=== PATIENT | female | born 1970 | race Caucasian/White ===

== ENCOUNTER 2024-03-01 13:43 | Emergency (ER) | payer MEDICAID ==
[~2024-03-01] VITALS: Ht 157.5 cm; Wt 77.1 kg
[2024-03-01] MEDS ORDERED: PANTOPRAZOLE 40 MG VIAL ONE (15:02)
[2024-03-01] MEDS ORDERED: MAG HYDROX/AL HYDROX/SIMETH 30 ML UDC ONE (15:02)
[2024-03-01] MEDS ORDERED: KETOROLAC TROMETHAMINE 15 MG/ML VIAL ONE (15:02)
[2024-03-01] MEDS ORDERED: LORAZEPAM INJ 2 MG/ML VIAL ONE (15:03)
[2024-03-01] MEDS: KETOROLAC TROMETHAMINE 15 MG/ML VIAL IV ONE (15:13)
[2024-03-01] MEDS: PANTOPRAZOLE 40 MG VIAL IV ONE (15:13)
[2024-03-01] MEDS: LORAZEPAM INJ 2 MG/ML VIAL IV ONE (15:13)
[2024-03-01] MEDS: MAG HYDROX/AL HYDROX/SIMETH 30 ML UDC PO ONE (15:13)
[2024-03-01 15:44] LABS: BASOPHILS # (AUTO) 0.1 K/uL (0.0-0.2); BASOPHILS % (AUTO) 1.3 % (0.0-2.0); EOSINOPHILS # (AUTO) 0.1 K/uL (0.0-0.7); EOSINOPHILS % (AUTO) 0.8 % (0.0-6.0); HEMATOCRIT 42 % (33-45); HEMOGLOBIN 14.2 g/dL (11.5-14.8); LYMPHOCYTES # (AUTO) 2.9 K/uL (0.8-4.8); LYMPHOCYTES % (AUTO) 27.1 % (20.0-44.0); MEAN CORPUSCULAR HEMOGLOBIN 30 PG (26.0-33.0); MEAN CORPUSCULAR HGB CONC 34 g/dl (31.0-36.0); MEAN CORPUSCULAR VOLUME 88 fL (82-100); MONOCYTES # (AUTO) 0.6 K/uL (0.1-1.30); MONOCYTES % (AUTO) 6.1 % (2.0-12.0); NEUTROPHILS # (AUTO) 6.8 K/uL (1.8-8.9); NEUTROPHILS % (AUTO) 64.7 % (43.0-81.0); PLATELET COUNT (AUTO) 339 K/uL (150-450); RED BLOOD CELL COUNT(AUTO) 4.81 MIL/uL (4.0-5.2); RED CELL DISTRIBUTION WIDTH 13.6 % (11.5-15.0); WHITE BLOOD COUNT (AUTO) 10.6 K/uL (4.3-11.0)
[2024-03-01 15:53] LABS: CARBON DIOXIDE 29 mmol/L (21-32); CHLORIDE 101 mmol/L (98-107); CREATININE 0.7 mg/dL (0.6-1.3); GLUCOSE 119 mg/dL (74-106); POTASSIUM 3.4 mmol/L (3.5-5.1); SODIUM SERUM 135 mmol/L (136-145); UREA NITROGEN, BLOOD 19 mg/dL (7-18)
[2024-03-01 16:06] LABS: NT-PRO BNP 11 pg/mL (0-125)
[2024-03-01] MEDS ORDERED: FAMO20TA80 PO (17:12)
[2024-03-01] MEDS ORDERED: PANT40TA2 PO (17:12)
[2024-03-01 17:39] VITALS: BP 135/80; TEMP 98; O2SAT 99
== END 2024-03-01 17:40 | disposition home or self-care (01) ==
LOC: ER 13:53
DX: R07.89 Other chest pain (principal); K21.9 Gastro-esophageal reflux disease without esophagitis; I10 Essential (primary) hypertension
CPT/HCPCS: 99291; 96374; 96375 ×2; 93005; 71045; 85025; 80048; 36415; 84484; 83880; J2060; C9113; J1885